=== PATIENT | female | born 1950 | race Caucasian/White ===

== ENCOUNTER 2019-03-16 23:11 | Emergency (ER) | payer BC, OTHER ==
[~2019-03-16] VITALS: Ht 157.5 cm; Wt 61.2 kg
[2019-03-16 23:45] VITALS: BP 134/64
--- NOTE | 2019-03-17 00:48 | PHYS DOC ---
Past Medical History Past Medical History: Migraines Past Surgical History: , Other Additional Past Surgical Histo: Dental Implant/removal Alcohol Use: Rarely Drug Use: None Adult General Chief Complaint Chief Complaint: MECHANICAL FALL HPI HPI Patient is a 68 year old right-handed female who presents with complaining of fall and injury to left shoulder. Patient states she had accidental fall from a standing position and hit her left shoulder prior to arrival to ER. Patient states she has some bleeding coming from the side of her head and is not sure if it was because of injury from his eyeglasses or if she hit something gets. Patient denies loss of consciousness, headache, nausea and vomiting, blurred vision, focal neuro deficit. Patient complaining of 8/10 pain in left shoulder and limited range of motion because of pain without focal neuro deficit and deformity. Last tetanus immunization is unknown. Review of Systems Review of Systems Constitutional: Denies fever or chills [] Eyes: Denies change in visual acuity, redness, or eye pain [] HENT: Denies nasal congestion or sore throat [] Respiratory: Denies cough or shortness of breath [] Cardiovascular: No additional information not addressed in HPI [] GI: Denies abdominal pain, nausea, vomiting, bloody stools or diarrhea [] : Denies dysuria or hematuria [] Musculoskeletal: Denies back pain, reports joint pain [] Integument: Denies rash or skin lesions [] Neurologic: Denies headache, focal weakness or sensory changes [] Endocrine: Denies polyuria or polydipsia [] All other systems were reviewed and found to be within normal limits, except as documented in this note. Current Medications Current Medications Current Medications Medications (Trade) Dose Ordered Sig/Carmen Start Time Stop Time Status Last Admin Dose Admin Diphtheria/ Tetanus/Acell Pertussis (Boostrix) 0.5 ml ONCE ONCE 03/17/19 01:00 03/17/19 01:01 DC 03/17/19 01:22 0.5 ML Ketorolac Tromethamine (Toradol Im) 60 mg 1X ONCE 03/17/19 01:00 03/17/19 01:01 DC 03/17/19 01:20 60 MG Ondansetron HCl (Zofran Odt) 4 mg 1X ONCE 03/17/19 01:30 03/17/19 01:31 DC 10/20/19 01:20 4 MG Allergies Allergies Allergies Coded Allergies Type Severity Reaction Last Updated Verified No Known Drug Allergies 04/28/14 No Physical Exam Physical Exam Constitutional: Well developed, well nourished, mild distress, non-toxic appearance. [] HENT: Normocephalic, 1 cm superficial linear ulceration in left.parietal scalp without active bleeding Eyes: PERRLA, EOMI, conjunctiva normal, no discharge. [] Neck: Normal range of motion, no tenderness, supple, no stridor. [] Cardiovascular:Heart rate regular rhythm, no murmur [] Lungs & Thorax: Bilateral breath sounds clear to auscultation [] Skin: Warm, dry, no erythema, no rash. [] Back: No tenderness, no CVA tenderness. [] Extremities: Left shoulder without deformity, tenderness and left shoulder with painful range of motion, no neurovascular deficit . Neurologic: Alert and oriented X 3, no focal deficits noted. [] Psychologic: Affect normal, judgement normal, mood normal. [] Current Patient Data Vital Signs Vital Signs Date Time Temp Pulse Resp B/P (MAP) Pulse Ox O2 Delivery O2 Flow Rate FiO2 03/16/19 23:45 98.1 83 15 134/64 (87) 99 Room Air 98.1 EKG EKG [] Radiology/Procedures Radiology/Procedures [][facility] [address] [place], [place] [id number] IMAGING REPORT Signed PATIENT: FRANK RUBALCAVA ACCOUNT: [id number] : 1950 LOCATION: ER AGE: 68 SEX: F EXAM STATUS: REG ER ORD. PHYSICIAN: SHAYNE HODGES MD REASON: fall; SHOULDER PAIN PROCEDURE: SHOULDER 2+V LEFT Indication:Fall. Pain. TECHNIQUE: 3 views of the left shoulder COMPARISON:None FINDINGS: There is a mildly displaced fracture through the neck of the humerus. 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 Left lung is clear. IMPRESSION: As above. Electronically signed by: Bennie Bush DO (03/17/2019 1:01 AM) [id number] DICTATED and SIGNED BY: BENNIE BUSH DO DATE: 03/17/19 0101 Course & Med Decision Making Course & Med Decision Making Pertinent Labs and Imaging studies reviewed. (See chart for details) Evaluation of patient in ER showed 68-year-old female patient with a fall and injury to left shoulder with limited range of motion. X-ray showed moderately displaced fracture of neck of humerus. Shoulder immobilizer was applied. She had 1 cm laceration of left wrist That was repaired with Dermabond. I've spoken with the patient and/or caregivers. I've explained the patient's condition, diagnosis and treatment plan based on information available to me at this time. I've answered the patient's and/or caregivers questions and addressed any concerns. The patient and/or caregivers have a good understanding the patient's diagnosis, condition and treatment plan as can be expected at this point. Vital signs have been stabilized. The patient's condition is stable for discharge from the emergency department. The patient will pursue further outpatient evaluation with her primary care provider or other designated consulting physician as outlined in the discharge instructions. Patient and/or caregivers are agreeable to this plan of care and follow-up instructions have been explained in detail. The patient and/or caregivers have received these instructions in written format and expressed understanding of these discharge instructions. The patient and her caregivers are aware that if any significant change in condition or worsening of symptoms should prompt him to immediately return to this of the closest emergency department. If an emergent department is not readily available I would encourage him to call 911. Dragon Disclaimer Dragon Disclaimer This electronic medical record was generated, in whole or in part, using a voice recognition dictation system. Departure Departure Impression: Primary Impression: Fracture, humerus, neck Additional Impressions: Puncture wound of scalp Fall Disposition: HOME, SELF-CARE (at 0 145) Condition: IMPROVED Referrals: UNKNOWN PCP NAME (PCP) LORI VILLEGAS MD Patient Instructions: Humerus Fracture, Treated with Immobilization, [id number] Additional Instructions: Drink plenty of liquids Follow-up with your primary care physician in 3-5 days Return to ER if not getting better Apply ice on the affected area Follow-up with on-call orthopedic physician in 2 or 3 days Scripts Hydrocodone/Apap 5-325 (NORCO 5-325 TABLET) 1 Each Tablet 1 TAB PO PRN Q6HRS PRN for PAIN, #20 TAB 0 Refills Prov: SHAYNE HODGES MD 03/17/19 Ibuprofen (IBUPROFEN) 600 Mg Tablet 600 MG PO PRN Q6HRS PRN for PAIN, #30 TAB take with food or milk Prov: SHAYNE HODGES MD 03/17/19 Laceration Repair Lac Repair Indication: left parietal scalp Procedure: The patient was placed in the appropriate position and superficial laceration of left.scalp was repaired with Dermabond. Total repaired wound length: 1 cm Other Items: None The patient tolerated the procedure well. Complications: None. Problem Qualifiers Primary Impression: Fracture, humerus, neck Encounter type: initial encounter Fracture type: closed Laterality: left Qualified Codes: S42.212A - Unspecified displaced fracture of surgical neck of left humerus, initial encounter for closed fracture Additional Impressions: Puncture wound of scalp Encounter type: subsequent encounter Qualified Codes: S01.03XD - Puncture wound without foreign body of scalp, subsequent encounter Fall Encounter type: subsequent encounter Qualified Codes: W19.XXXD - Unspecified fall, subsequent encounter SHAYNE HODGES MD Mar 17, 2019 00:48
[2019-03-17] MEDS ORDERED: KETOROLAC 60 MG/2 ML VIAL. IM ONE (01:00)
[2019-03-17] MEDS ORDERED: DIPHTH,PERTUSS(ACELL),TET TOX 0.5 ML DISP.SYRIN. VAX IM ONE (01:00)
--- NOTE | 2019-03-17 01:04 | RAD ---
Indication:Fall. Pain. TECHNIQUE: 3 views of the left shoulder COMPARISON:None FINDINGS: There is a mildly displaced fracture through the neck of the humerus. 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 Left lung is clear. IMPRESSION: As above. Electronically signed by: Bennie Bush DO (03/17/2019 1:01 AM) [facility]
[2019-03-17] MEDS ORDERED: ONDANSETRON ODT 4 MG TAB.RAPDIS. PO ONE (01:30)
[2019-03-17] MEDS ORDERED: IBUP-1007 PO (01:44)
[2019-03-17] MEDS ORDERED: HYDR-3164 PO (01:44)
== END 2019-03-17 02:30 | disposition home or self-care (01) ==
LOC: ER 23:11
DX: S42.212A Unspecified displaced fracture of surgical neck of left humerus, initial encounter for closed fracture (principal); S01.03XA Puncture wound without foreign body of scalp, initial encounter; G43.909 Migraine, unspecified, not intractable, without status migrainosus; W18.39XA Other fall on same level, initial encounter; Y93.89 Activity, other specified; Y92.89 Other specified places as the place of occurrence of the external cause; Y99.8 Other external cause status
CPT/HCPCS: 12001; 29240; 73030; 90471; 90715; 96372; 99284; J1885; Q0162